=== PATIENT | female | born 1940 | race Caucasian/White ===

== ENCOUNTER 2021-03-30 17:27 | Emergency (ER) | payer MEDICARE, OTHER, SELFPAY ==
[2021-03-30] VITALS (10 sets, daily range): BP systolic 147–182; BP diastolic 65–86; PULSE 63–75; RESP 16–35; TEMP 36.9; O2SAT 96–99; BMI 33.4
--- NOTE | 2021-03-30 18:48 | DI.RAD.S_ITS ---
PROCEDURE: XR CHEST 1V INDICATIONS: chest pain TECHNIQUE: One view of the chest was acquired. COMPARISON: None. FINDINGS: Surgical changes and devices: None. Lungs and pleura: Lungs are clear. No pleural effusions or pneumothorax. Mediastinum: Mediastinal contours appear normal. Heart size is normal. Atherosclerotic vascular calcification noted in the aortic arch. Bones and chest wall: No suspicious bony lesions. Overlying soft tissues appear unremarkable. Generalized decrease in osseous mineralization noted. IMPRESSION: No acute cardiopulmonary findings Approved by: Theodore Cantor M.D. on 03/30/2021 at 18:26
[2021-03-30 19:07] LABS: Add Manual Diff / Slide Review NO; Basophils Absolute Auto 100 /uL (0-100); Basophils Percent Auto 0.9 % (0-2); Eosinophils Absolute Auto 500 /uL (0-450); Eosinophils Percent Auto 6.7 % (2-4); Hematocrit 33.5 % (36-46); Lymphocytes Absolute Auto 2300 /uL (1100-4500); Lymphocytes Percent Auto 30.6 % (25-40); Mean Corpuscular HGB Conc 32.9 % (30-36); Mean Corpuscular Hemoglobin 27.8 PG (26-34); Mean Corpuscular Volume 84.7 fL (80-100); Monocytes Absolute Auto 700 /uL (0-900); Monocytes Percent Auto 9.8 % (3-14); Neutrophils Absolute Auto 3800 /uL (1500-7000); Platelet Count 195 X10^3/uL (150-400); Red Blood Cell Count 3.95 X10^6/uL (4.0-5.2); Red Cell Distribution Width 14.6 % (11.6-14.8); White Blood Cell Count 7.4 X10^3/uL (4.5-11.0)
[2021-03-30 19:14] LABS: COVID19 -Nasal RAPID Negative (Negative)
[2021-03-30 19:18] LABS: Alanine Aminotransferase 32 IU/L (<35); Albumin 3.6 g/dL (3.5-5.0); Albumin Globulin Ratio 1.2 (1.0-2.8); Alkaline Phosphatase 101 U/L (38-126); Aspartate Aminotransferase 37 IU/L (14-36); Bilirubin Total 0.2 mg/dL (0.2-1.3); Blood Urea Nitrogen 18 mg/dL (7-17); Calcium 8.7 mg/dL (8.4-10.2); Carbon Dioxide 30 mmol/L (22-32); Chloride 109 mmol/L (98-107); Creatine Kinase 66 U/L (30-135); Estimated Glomerular Filt Rate > 60.0 mL/min (>60); Globulin 2.9 g/dL (1.7-4.1); Glucose 89 mg/dL (80-110); HEMOLYSIS < 15 (0-50); Lipase 53 U/L (23-300); Potassium 3.6 mmol/L (3.4-5.1); Sodium 144 mmol/L (137-145); Total Protein 6.5 g/dL (6.3-8.2)
[2021-03-30 19:30] LABS: Troponin I < 0.012 ng/mL (0.01-0.034)
--- NOTE | 2021-03-30 20:00 | ED.SOB ---
HPI - SOB/Dyspnea General Chief Complaint: Shortness of Breath/Dyspnea Stated Complaint: Post-covid, SOB, fatigue Time Seen by Provider: 03/30/21 19:33 History of Present Illness HPI Narrative: Patient complains ongoing shortness of breath without any chest pain for the past month. Patient currently living out of her car. Has not seen her primary care physician because office is too far away. Patient at 1 point was living in [place]. Patient states her daughter is living in [place]. Patient denies any previous lung disease. She thinks she had COVID in May 2019 before it was known. Does not smoke. Is not on home oxygen. Vital signs noted. No hypoxia no tachycardia no tachypnea. 97% room air. No recent cough cold congestion. Patient states she had some feet swelling yesterday because she all lot of salt in a pizza. It has improved she. She states she is scheduled April 12 for bladder surgery. Review of Systems Review of Systems Narrative: GENERAL: Denies chills, fatigue, malaise, fever, sweats. HEENT: Denies sinus pain, ear pain, sore throat RESPIRATORY: Complaintdyspnea, denies cough CARDIOVASCULAR: Denies chest pain, palpitations GASTROINTESTINAL: Denies nausea, vomiting, abdominal pain : Denies dysuria, frequency, hematuria MUSCULOSKELETAL: denies muscle or bony pain SKIN: Denies rash, skin lesions NEUROLOGIC: Denies weakness, numbness ROS Unobtainable: All systems reviewed & are unremarkable except as noted in HPI and below Exam Narrative Exam Narrative: GENERAL: in no distress, not toxic not dyspneic HEAD: Normocephalic. EYES: Pupils equal round No scleral icterus. No injection no discharge ENT: Mucous membranes moist. NECK: Trachea midline. CARDIOVASCULAR: Regular rate and rhythm without murmurs RESPIRATORY: Clear to auscultation. Breath sounds equal bilaterally. No wheezes, rales, or rhonchi. Speaks full sentences. Not dyspneic. In no distress. GASTROINTESTINAL: Abdomen soft, non-tender EXTREMITIES: No gross deformities. BACK: No flank tenderness. NEURO: AOx4. SKIN: Warm and dry PSYCH: Not anxious, is cooperative Initial Vital Signs Initial Vital Signs: Vital Signs Temperature 98.5 F 03/30/21 17:37 Pulse Rate 75 03/30/21 17:37 Respiratory Rate 16 03/30/21 17:37 Blood Pressure 153/65 H 03/30/21 17:37 Pulse Oximetry 97 03/30/21 17:37 Course Course Course Narrative: 97% room air walking in hallway in no distress Orders Ordered: ED Orders 03/30/21 18:48 XR chest 1V Stat EKG-12 Lead Stat 03/30/21 18:50 COVID19 -Nasal swab/Pre-Proc Stat 03/30/21 18:55 Complete Blood Count AUTO DIFF Stat Comprehensive Metabolic Panel Stat Lipase Stat NT-proBNP (BNP-Adult 18+) Stat Troponin & CK Cardiac Panel Stat Reevaluation(s) Reevaluation #1: 97% room air walking in hallway no distress not dyspneic. No distress Time: 20:22 Vital Signs Vital signs: Vital Signs - 8 hr 03/30/21 18:41 03/30/21 18:44 03/30/21 19:00 Pulse Rate 70 64 67 Respiratory Rate 19 35 H Blood Pressure 147/69 H Pulse Oximetry 99 97 98 03/30/21 19:30 03/30/21 19:31 03/30/21 20:00 Pulse Rate 64 63 72 Respiratory Rate 25 H 21 32 H Blood Pressure 167/72 H Pulse Oximetry 96 96 98 03/30/21 20:01 03/30/21 20:17 03/30/21 21:19 Pulse Rate 69 73 Respiratory Rate 33 H Blood Pressure 182/79 H 171/86 H Pulse Oximetry 97 97 97 MDM - SOB/Dyspnea Differential Diagnosis Differential diagnosis: Likely acute exacerbation of chronic obstructive airways disease, congestive heart failure, community acquired pneumonia, asthma with exacerbation and other (Dyspnea/upper respiratory infection) Lab Data Result diagrams: 03/30/21 18:55 03/30/21 18:55 Labs: Lab Results 03/30/21 03/30/21 03/30/21 Range/Units 18:50 18:55 18:55 WBC 7.4 (4.5-11.0) X10^3/uL RBC 3.95 L (4.0-5.2) X10^6/uL Hgb 11.0 L (12.0-16.0) g/dL Hct 33.5 L (36-46) % MCV 84.7 (80-100) fL MCH 27.8 (26-34) PG MCHC 32.9 (30-36) % RDW 14.6 (11.6-14.8) % Plt Count 195 (150-400) X10^3/uL Neut % (Auto) 52.0 (50-75) % Lymph % (Auto) 30.6 (25-40) % Piatt % (Auto) 9.8 (3-14) % Eos % (Auto) 6.7 H (2-4) % Baso % (Auto) 0.9 (0-2) % Neut # (Auto) 3800 (1204-5800) /uL Lymph # (Auto) 2300 (3125-3700) /uL Piatt # (Auto) 700 (0-900) /uL Eos # (Auto) 500 H (0-450) /uL Baso # (Auto) 100 (0-100) /uL Sodium 144 (137-145) mmol/L Potassium 3.6 (3.4-5.1) mmol/L Chloride 109 H (98-107) mmol/L Carbon Dioxide 30 (22-32) mmol/L BUN 18 H (7-17) mg/dL Creatinine 0.53 (0.52-1.04) mg/dL Estimated GFR > 60.0 (>60) mL/min BUN/Creatinine Ratio 34.0 H (6-22) Glucose 89 (80-110) mg/dL Calcium 8.7 (8.4-10.2) mg/dL Total Bilirubin 0.2 (0.2-1.3) mg/dL AST 37 H (14-36) IU/L ALT 32 (<35) IU/L Alkaline Phosphatase 101 (38-126) U/L Total Creatine Kinase 66 (30-135) U/L CK-MB (CK-2) TNP CK-MB (CK-2) Rel Index TNP Troponin I < 0.012 (0.01-0.034) ng/mL NT-Pro-B Natriuret Pep (<450) pg/mL Total Protein 6.5 (6.3-8.2) g/dL Albumin 3.6 (3.5-5.0) g/dL Globulin 2.9 (1.7-4.1) g/dL Albumin/Globulin Ratio 1.2 (1.0-2.8) Lipase 53 (23-300) U/L SARS-CoV-2 (PCR) Negative (Negative) 03/30/21 Range/Units 18:55 WBC (4.5-11.0) X10^3/uL RBC (4.0-5.2) X10^6/uL Hgb (12.0-16.0) g/dL Hct (36-46) % MCV (80-100) fL MCH (26-34) PG MCHC (30-36) % RDW (11.6-14.8) % Plt Count (150-400) X10^3/uL Neut % (Auto) (50-75) % Lymph % (Auto) (25-40) % Piatt % (Auto) (3-14) % Eos % (Auto) (2-4) % Baso % (Auto) (0-2) % Neut # (Auto) (4160-0915) /uL Lymph # (Auto) (0822-6587) /uL Piatt # (Auto) (0-900) /uL Eos # (Auto) (0-450) /uL Baso # (Auto) (0-100) /uL Sodium (137-145) mmol/L Potassium (3.4-5.1) mmol/L Chloride (98-107) mmol/L Carbon Dioxide (22-32) mmol/L BUN (7-17) mg/dL Creatinine (0.52-1.04) mg/dL Estimated GFR (>60) mL/min BUN/Creatinine Ratio (6-22) Glucose (80-110) mg/dL Calcium (8.4-10.2) mg/dL Total Bilirubin (0.2-1.3) mg/dL AST (14-36) IU/L ALT (<35) IU/L Alkaline Phosphatase (38-126) U/L Total Creatine Kinase (30-135) U/L CK-MB (CK-2) CK-MB (CK-2) Rel Index Troponin I (0.01-0.034) ng/mL NT-Pro-B Natriuret Pep 276 (<450) pg/mL Total Protein (6.3-8.2) g/dL Albumin (3.5-5.0) g/dL Globulin (1.7-4.1) g/dL Albumin/Globulin Ratio (1.0-2.8) Lipase (23-300) U/L SARS-CoV-2 (PCR) (Negative) Imaging Data Chest x-ray: Radiologist's Impression: [address] [address] XRay Report Signed Patient: Brittany Slade V MR#: [id number] : 1940 Acct:[id number] Age/Sex: 81 / F Date of Service: 03/30/21 Loc: ED Accession Number: [id number] ?? Procedure: XR chest 1V Ordering Provider: Juan Sprague MD PROCEDURE:? XR CHEST 1V ? INDICATIONS:? chest pain ? TECHNIQUE:? One view of the chest was acquired.? ? COMPARISON:? None. ? FINDINGS:? ? Surgical changes and devices:? None.? ? Lungs and pleura:? Lungs are clear.? No pleural effusions or pneumothorax.? ? Mediastinum:? Mediastinal contours appear normal.? Heart size is normal.? Atherosclerotic vascular calcification noted in the aortic arch. ? Bones and chest wall:? No suspicious bony lesions.? Overlying soft tissues appear unremarkable.? Generalized decrease in osseous mineralization noted. ? IMPRESSION:? No acute cardiopulmonary findings ? ? ? Approved by: Theodore Cantor M.D. on 03/30/2021 at 18:26? ECG Data Interpretation: Normal sinus rhythm rate [address] elevation or depression MDM Narrative Medical decision making narrative: Upper for discharge home. Patient no distress. No signs of cardiac stress or pulmonary distress. Normal chest x-ray. 97% room air. Not on beta-marlyn. No tachypnea no tachycardia. No hypoxia. Return precautions reviewed with patient. Given patient referral for new primary care. Not toxic at discharge. Patient desires discharge home. Exam and laboratory studies reassuring. Return precautions reviewed with her. No repeat blood work indicated. Ongoing for 1 month. No chest pain. Patient could be developing allergies as well. She moved here in May 2020. She states she has had a lot of runny nose sinus pressure. She is new to this area. Discharge Plan Departure Patient Disposition: Home Clinical Impression: Shortness of Breath Instructions: DI for Shortness of Breath Activity Restrictions/Additional Instructions: Call provided primary care referral number tomorrow to establish new family doctor. May have your surgery on April 12 as scheduled. Return if worsening questions or concerns. May continue home medications. Call provided [facility] office tomorrow for follow-up regarding your pessary Referrals: [facility] [Outside] Malcom Francisco MD [Physician] -
[2021-03-30 20:21] LABS: NT-proBNP (BNP-Adult 18+) 276 pg/mL (<450)
== END 2021-03-30 21:47 | disposition home or self-care (01) ==
PROVIDERS: Emergency Provider Emergency Medicine
DX: R06.02 Shortness of breath (principal); R07.9 Chest pain, unspecified; Z20.822 Contact with and (suspected) exposure to COVID-19
CPT/HCPCS: 36415; 71045; 80053; 82550; 83690; 83880; 84484; 85025; 87635; 93005; 99284; C9803

== ENCOUNTER 2021-03-31 16:04 | Emergency (ER) | payer MEDICARE, OTHER, SELFPAY ==
[2021-03-31 16:14] VITALS: BP 217/93; PULSE 83; RESP 16; TEMP 36.8; O2SAT 97; BMI 33.4
--- NOTE | 2021-03-31 18:13 | DI.RAD.S_ITS ---
PROCEDURE: XR SHOULDER RT MIN 2V INDICATIONS: pain/injury TECHNIQUE: 3 views of the shoulder were acquired. COMPARISON: None. FINDINGS: Bones: Three views of the right shoulder were performed. There is no fracture or dislocation. Mild degenerative changes are noted. Soft tissues: No suspicious soft tissue calcifications. IMPRESSION: No acute abnormality of the right shoulder. Dictated by: Adriano Syed M.D. on 03/31/2021 at 18:47 Approved by: Adriano Syed M.D. on 03/31/2021 at 18:49
--- NOTE | 2021-03-31 18:15 | ED.UPPEXIN ---
HPI - Extremity Injury (Upper) General Chief Complaint: Extremity Injury, Upper Stated Complaint: Fall, Rt Shoulder Injury Time Seen by Provider: 03/31/21 18:04 Source: patient Mode of arrival: Ambulatory History of Present Illness HPI narrative: Patient was seen by me here last night for unrelated reasons. She is currently living out of her car but last night after discharge she decided stay in the hospital lobby area. She states in the middle night she got up out of the couch and was spitting and lost her balance and hit her right shoulder against the wall. Denies any other injuries. No fall. No head neck trunk chest abdominal back pain. No lower extremity or pelvic or hip pain. Denies any other injuries. Patient is right handed. Has had problems with her shoulder in the past. No surgeries on the shoulder. No numbness or tingling to the face and. Blood pressure noted. She states she no longer takes her blood pressure medications because it makes her too dizzy. Patient was given referral to a family doctor yesterday Related Data Allergies Allergy/AdvReac Type Severity Reaction Status Date / Time codeine AdvReac Vomiting Verified 03/31/21 16:21 Review of Systems Review of Systems Narrative: GENERAL: Denies chills, fatigue, malaise, fever, sweats. HEENT: Denies sinus pain, ear pain, sore throat RESPIRATORY: Denies dyspnea, cough CARDIOVASCULAR: Denies chest pain, palpitations GASTROINTESTINAL: Denies nausea, vomiting, abdominal pain : Denies dysuria, frequency, hematuria MUSCULOSKELETAL: Complainsmuscle or bony pain SKIN: Denies rash, skin lesions NEUROLOGIC: Denies weakness, numbness ROS Unobtainable: All systems reviewed & are unremarkable except as noted in HPI and below Patient History Social History Smoking Status: Never smoker Smoking Status: Never smoker alcohol intake frequency: other Substance Use Type: does not use Exam Narrative Exam Narrative: GENERAL: in no distress, not toxic not dyspneic HEAD: Normocephalic. Nontender face and scalp. EYES: Pupils equal round No scleral icterus. No injection no discharge ENT: Mucous membranes moist. NECK: Trachea midline. No midline tenderness step-off CARDIOVASCULAR: Regular rate and rhythm without murmurs RESPIRATORY: Clear to auscultation. Breath sounds equal bilaterally. No wheezes, rales, or rhonchi. GASTROINTESTINAL: Abdomen soft, non-tender EXTREMITIES: No gross deformities. Examination right upper extremity mild tenderness diffusely of the head right shoulder there is no bruising. Skin is intact. Has limited range of motion due to pain. No gross deformity. Strong cath lab radiology technician in radial pulse with light detected deltoid and finger tips. Nontender elbow and wrist. Remaining limbs nontender left shoulder elbow wrist. Nontender pelvis hips knees and ankles. NEURO: AOx4. SKIN: Warm and dry PSYCH: Not anxious, is cooperative Initial Vital Signs Initial Vital Signs: Vital Signs Temperature 98.2 F 03/31/21 16:14 Pulse Rate 83 03/31/21 16:14 Respiratory Rate 16 03/31/21 16:14 Blood Pressure 217/93 H 03/31/21 16:14 Pulse Oximetry 97 03/31/21 16:14 Course Orders Ordered: Discontinued Medications Acetaminophen (Acetaminophen 325 Mg Tablet) 650 mg PO NOW ONE Stop: 03/31/21 18:15 Last Admin: 03/31/21 18:35 Dose: 650 mg Documented by: FORTINO Reevaluation(s) Reevaluation #1: Blood pressure improved 152/75. Pain controlled. Reviewed results with patient. Agrees with discharge and follow-up. Return precautions reviewed with her Time: 19:12 Vital Signs Vital signs: Vital Signs - 8 hr 03/31/21 16:14 03/31/21 19:11 Temperature 98.2 F Pulse Rate 83 80 Respiratory Rate 16 16 Blood Pressure 217/93 H 152/75 H Pulse Oximetry 97 98 MDM - Extremity Injury (Upper) Differential Diagnosis Differential diagnosis: Likely dislocation of shoulder, fracture of humerus, fracture of clavicle and other (Contusion) Imaging Data Extremity x-ray #1: Radiologist's Impression: [address] [address] XRay Report Signed Patient: Brittany Slade V MR#: [id number] : 1940 Acct:[id number] Age/Sex: 81 / F Date of Service: 03/31/21 Loc: ED Accession Number: [id number] ?? Procedure: XR shoulder RT min 2V Ordering Provider: Juan Sprague MD PROCEDURE:? XR SHOULDER RT MIN 2V ? INDICATIONS:? pain/injury ? TECHNIQUE:? 3 views of the shoulder were acquired.? ? COMPARISON:? None. ? FINDINGS:? ? Bones:? Three views of the right shoulder were performed.? There is no fracture or dislocation.? Mild degenerative changes are noted. ? Soft tissues:? No suspicious soft tissue calcifications.? ? IMPRESSION:? No acute abnormality of the right shoulder. ? ? Dictated by: Adriano Syed M.D. on 03/31/2021 at 18:47 ? ? Approved by: Adriano Syed M.D. on 03/31/2021 at 18:49 ? MDM Narrative Medical decision making narrative: Appropriate for discharge home. Right upper extremity neurovascularly intact. Return precautions reviewed patient. Reviewed with patient blood pressure and needs to take her blood pressure medications at home but she states it makes her too dizzy and does not like to take it. She does understand risks of heart attack stroke kidney failure. Provided orthopedic follow-up for patient. Return precautions reviewed with her Discharge Plan Departure Patient Disposition: Home Clinical Impression: Contusion of right shoulder Qualifiers: Encounter type: initial encounter Qualified Code(s): S40.011A - Contusion of right shoulder, initial encounter Instructions: Essential Hypertension, DI for Contusion Activity Restrictions/Additional Instructions: Return if worse or any questions or concerns. May use Tylenol for shoulder pain. May use cool packs to the shoulder 20 minutes at a time as needed for pain. Call provided orthopedic office tomorrow for office recheck in a week. Referrals: Rashel Levi MD [Primary Care Provider] - Franklin Nichole MD [Physician] -
[2021-03-31] MEDS: ACETAMINOPHEN 325 MG TABLET 650 MG PO (18:35)
[2021-03-31 19:11] VITALS: BP 152/75; PULSE 80; RESP 16; O2SAT 98
== END 2021-03-31 20:01 | disposition home or self-care (01) ==
PROVIDERS: Emergency Provider Emergency Medicine; PCP Internal Medicine
DX: S40.011A Contusion of right shoulder, initial encounter (principal); W22.8XXA Striking against or struck by other objects, initial encounter
CPT/HCPCS: 73030; 99283

== ENCOUNTER 2021-05-30 21:02 | Emergency (ER) | payer MEDICARE, OTHER, SELFPAY ==
[2021-05-30 21:18] VITALS: BP 168/76; PULSE 82; RESP 16; TEMP 36.4; O2SAT 96; BMI 35.6
--- NOTE | 2021-05-30 21:19 | ED.WEAKNESS ---
HPI - Weakness General Chief complaint: Fever Stated complaint: BODY ACHES FEEL SICK Time Seen by Provider: 05/30/21 21:03 History of Present Illness HPI Narrative: 81-year-old female nonsmoker presents with a chief complaint of feeling sick over the course of the day. She states she went to bed in her normal state of health and since about 730 this morning she has felt nauseated and achy. She has had no measured fever. She denies runny nose, sore throat or cough. She has had no chest pain or shortness of breath. She has been nauseated but denies vomiting or abdominal pain. She has had no dysuria, frequency or urgency. She states she feels like she did when she had COVID previously. Denies any new medications or dietary change Related Data Allergies Allergy/AdvReac Type Severity Reaction Status Date / Time codeine AdvReac Vomiting Verified 03/31/21 16:21 Review of Systems Review of Systems Narrative: GENERAL: See HPI HEENT: Denies sinus pain, ear pain, sore throat, difficulty swallowing, dizziness. RESPIRATORY: Denies dyspnea, cough, wheezing, hemoptysis, sputum. CARDIOVASCULAR: Denies chest pain, palpitations, orthopnea, edema, GASTROINTESTINAL: Denies nausea, vomiting, abdominal pain, diarrhea, constipation, melena. : Denies dysuria, frequency, incontinence, hematuria, urinary retention. MUSCULOSKELETAL: denies weakness, joint pain, or bony pain SKIN: Denies rash, skin lesions, or other NEUROLOGIC: Denies weakness, headache, numbness, change in speech, confusion, seizures, incoordination. PSYCHIATRIC: No concerning psychosocial issues. 12 point review of systems is negative except for those stated above Patient History Social History Smoking Status: Never smoker Smoking Status: Never smoker alcohol intake frequency: other Substance Use Type: does not use Exam Narrative Exam Narrative: GENERAL: [] year old patient appears stated age. Well-developed patient, in mild distress. HEAD: Atraumatic. Normocephalic. EYES: Pupils equal round and reactive. Extraocular motions intact. No scleral icterus. No injection or drainage. ENT: Nose without bleeding, purulent drainage. Throat without erythema, tonsillar hypertrophy or exudate. Airway patent. NECK: Trachea midline. Non tender CARDIOVASCULAR: Regular rate and rhythm without murmurs, gallops, or rubs. RESPIRATORY: Clear to auscultation. Breath sounds equal bilaterally. No wheezes, rales, or rhonchi. GASTROINTESTINAL: Abdomen soft, non-tender, nondistended. EXTREMITIES: No edema or joint tenderness. BACK: Nontender without deformity or crepitance. No flank tenderness. NEURO: AOx3. SKIN: No rash or erythema of visible areas Initial Vital Signs Initial Vital Signs: Vital Signs Temperature 97.6 F 05/30/21 21:18 Pulse Rate 82 05/30/21 21:18 Respiratory Rate 16 05/30/21 21:18 Blood Pressure 168/76 H 05/30/21 21:18 Pulse Oximetry 96 05/30/21 21:18 Course Orders Ordered: ED Orders 05/30/21 21:20 COVID19 -Nasal swab/Pre-Proc Stat 05/30/21 21:25 Complete Blood Count AUTO DIFF Stat Comprehensive Metabolic Panel Stat Lipase Stat Magnesium Stat NT-proBNP (BNP-Adult 18+) Stat Troponin & CK Cardiac Panel Stat 05/30/21 21:46 XR chest 2V Stat 05/30/21 22:09 Urine Microscopic Stat Vital Signs Vital signs: Vital Signs - 8 hr 05/30/21 21:18 Temperature 97.6 F Pulse Rate 82 Respiratory Rate 16 Blood Pressure 168/76 H Pulse Oximetry 96 MDM - Weakness Lab Data Result diagrams: 05/30/21 21:25 05/30/21 21:25 Labs: Lab Results 05/30/21 05/30/21 05/30/21 Range/Units 21:20 21:25 21:25 WBC 7.3 (4.5-11.0) X10^3/uL RBC 4.23 (4.0-5.2) X10^6/uL Hgb 11.4 L (12.0-16.0) g/dL Hct 35.3 L (36-46) % MCV 83.4 (80-100) fL MCH 27.0 (26-34) PG MCHC 32.3 (30-36) % RDW 15.0 H (11.6-14.8) % Plt Count 241 (150-400) X10^3/uL Neut % (Auto) 56.1 (50-75) % Lymph % (Auto) 29.8 (25-40) % [place] % (Auto) 9.5 (3-14) % Eos % (Auto) 3.8 (2-4) % Baso % (Auto) 0.8 (0-2) % Neut # (Auto) 4100 (1539-3588) /uL Lymph # (Auto) 2200 (1719-9276) /uL [place] # (Auto) 700 (0-900) /uL Eos # (Auto) 300 (0-450) /uL Baso # (Auto) 100 (0-100) /uL Sodium 144 (137-145) mmol/L Potassium 4.1 (3.4-5.1) mmol/L Chloride 107 (98-107) mmol/L Carbon Dioxide 29 (22-32) mmol/L BUN 18 H (7-17) mg/dL Creatinine 0.62 (0.52-1.04) mg/dL Estimated GFR > 60.0 (>60) mL/min BUN/Creatinine Ratio 29.0 H (6-22) Glucose 106 (80-110) mg/dL Calcium 9.3 (8.4-10.2) mg/dL Magnesium 2.1 (1.6-2.3) mg/dL Total Bilirubin 0.3 (0.2-1.3) mg/dL AST 34 (14-36) IU/L ALT 25 (<35) IU/L Alkaline Phosphatase 104 (38-126) U/L Total Creatine Kinase 74 (30-135) U/L CK-MB (CK-2) TNP CK-MB (CK-2) Rel Index TNP Troponin I < 0.012 (0.01-0.034) ng/mL NT-Pro-B Natriuret Pep 180 (<450) pg/mL Total Protein 7.3 (6.3-8.2) g/dL Albumin 4.1 (3.5-5.0) g/dL Globulin 3.2 (1.7-4.1) g/dL Albumin/Globulin Ratio 1.3 (1.0-2.8) Lipase 49 (23-300) U/L Urine RBC (0-5/HPF) Urine WBC (0-5/HPF) Ur Squamous Epith Cells (0-5/HPF) Calcium Oxalate Crystal Urine Bacteria (None) Urine Mucus (Negative) Ur Culture Indicated? SARS-CoV-2 (PCR) Negative (Negative) 05/30/21 Range/Units 22:09 WBC (4.5-11.0) X10^3/uL RBC (4.0-5.2) X10^6/uL Hgb (12.0-16.0) g/dL Hct (36-46) % MCV (80-100) fL MCH (26-34) PG MCHC (30-36) % RDW (11.6-14.8) % Plt Count (150-400) X10^3/uL Neut % (Auto) (50-75) % Lymph % (Auto) (25-40) % [place] % (Auto) (3-14) % Eos % (Auto) (2-4) % Baso % (Auto) (0-2) % Neut # (Auto) (8832-8550) /uL Lymph # (Auto) (0442-0196) /uL [place] # (Auto) (0-900) /uL Eos # (Auto) (0-450) /uL Baso # (Auto) (0-100) /uL Sodium (137-145) mmol/L Potassium (3.4-5.1) mmol/L Chloride (98-107) mmol/L Carbon Dioxide (22-32) mmol/L BUN (7-17) mg/dL Creatinine (0.52-1.04) mg/dL Estimated GFR (>60) mL/min BUN/Creatinine Ratio (6-22) Glucose (80-110) mg/dL Calcium (8.4-10.2) mg/dL Magnesium (1.6-2.3) mg/dL Total Bilirubin (0.2-1.3) mg/dL AST (14-36) IU/L ALT (<35) IU/L Alkaline Phosphatase (38-126) U/L Total Creatine Kinase (30-135) U/L CK-MB (CK-2) CK-MB (CK-2) Rel Index Troponin I (0.01-0.034) ng/mL NT-Pro-B Natriuret Pep (<450) pg/mL Total Protein (6.3-8.2) g/dL Albumin (3.5-5.0) g/dL Globulin (1.7-4.1) g/dL Albumin/Globulin Ratio (1.0-2.8) Lipase (23-300) U/L Urine RBC 0-1/hpf (0-5/HPF) Urine WBC None seen (0-5/HPF) Ur Squamous Epith Cells >30 /hpf H (0-5/HPF) Calcium Oxalate Crystal Moderate H Urine Bacteria Occasional (0-1) (None) Urine Mucus 2+ H (Negative) Ur Culture Indicated? Cult not indicated SARS-CoV-2 (PCR) (Negative) Urine Dip Bedside Urine Glucose Negative Bedside Urine Bilirubin + 1 Bedside Urine Ketone - Negative Urine Specific [place] 1.030 Bedside Urine Occult Blood +/- Bedside Urine pH 5.5 Bedside Urine Protein + 30 Bedside Urine Urobilinogen +/- 1mg Bedside Urine Nitrite - Negative Bedside Urine Leukocytes - Negative Esterase Imaging Data Chest x-ray: Radiologist Impression: [address] [address] XRay Report Signed Patient: Brittany Slade V MR#: [id number] : 1940 Acct:[id number] Age/Sex: 81 / F Date of Service: 05/30/21 Loc: ED Accession Number: [id number] ?? Procedure: XR chest 2V Ordering Provider: Frank Arambula D.O. PROCEDURE:? XR CHEST 2V ? INDICATIONS:? feels weak ? TECHNIQUE:? 2 views of the chest were acquired.? ? COMPARISON:? [facility], [place], XR CHEST 1V, 03/30/2021, 18:50. ? FINDINGS:? ? Surgical changes and devices:? None.? ? Lungs and pleura:? Mild interstitial prominence.? Suspect nodular infiltrate in the right upper lobe.? No pleural effusions or pneumothorax.? ? Mediastinum:? Mediastinal contours are normal.? Heart size is normal.? ? Bones and chest wall:? No suspicious bony abnormalities.? Soft tissues appear unremarkable.? ? IMPRESSION:? ? 1. Nodular infiltrates in the right upper lobe. 2. There is diffuse interstitial prominence.? Dictated by: Callie Bernal M.D. on 05/30/2021 at 22:00 ? ? Approved by: Callie Bernal M.D. on 05/30/2021 at 22:02 ? MDM Narrative Medical decision making narrative: Patient has a very reassuring physical exam history, labs and imaging. She has stable vitals and shows no signs of sepsis or after distress. She admits that she is most concerned about COVID and also that she is significantly relieved to know that she does not have it. She has been given return precautions and questions have been answered to her apparent satisfaction Discharge Plan Departure Patient Disposition: Home Clinical Impression: Feared complaint without diagnosis Activity Restrictions/Additional Instructions: *You have been diagnosed with [Feared complaint (COVID) without specific diagnosis. Your history, physical exam, labs, and imaging are very reassuring and there is no evidence of COVID, dehydration, pneumonia, UTI or other specific diagnosis. ] *What to do: *Please continue to take your regular medications as directed. [ ] New medication prescriptions sent to your pharmacy: [ ] [ ] New medication written as a paper prescription [x ] No new medications given *Please follow up with your primary care provider in 2-3 days, call for an appointment. Let them know you were seen in the Emergency Department and that we ask that you be seen in follow up. We will electronically transmit a record of today's note if your PCP is in our system *If you do not have a primary care provider please contact the [facility] Resource line at [phone]. They will ask some questions about your medical history and help get you set up with a doctor in the community. *Return to Emergency Department if you should have any new, worsening or concerning symptoms, such as [fever greater than 101 F, shaking chills, worsening pain, persistent vomiting or other bothersome symptoms] Referrals: Rashel Levi MD [Primary Care Provider] -
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
[2021-05-30 21:40] LABS: COVID19 -Nasal RAPID Negative (Negative)
[2021-05-30 21:44] LABS: Add Manual Diff / Slide Review NO; Alanine Aminotransferase 25 IU/L (<35); Albumin 4.1 g/dL (3.5-5.0); Albumin Globulin Ratio 1.3 (1.0-2.8); Alkaline Phosphatase 104 U/L (38-126); Aspartate Aminotransferase 34 IU/L (14-36); Basophils Absolute Auto 100 /uL (0-100); Basophils Percent Auto 0.8 % (0-2); Bilirubin Total 0.3 mg/dL (0.2-1.3); Blood Urea Nitrogen 18 mg/dL (7-17); Calcium 9.3 mg/dL (8.4-10.2); Carbon Dioxide 29 mmol/L (22-32); Chloride 107 mmol/L (98-107); Creatine Kinase 74 U/L (30-135); Eosinophils Absolute Auto 300 /uL (0-450); Eosinophils Percent Auto 3.8 % (2-4); Estimated Glomerular Filt Rate > 60.0 mL/min (>60); Globulin 3.2 g/dL (1.7-4.1); Glucose 106 mg/dL (80-110); HEMOLYSIS < 15 (0-50); Hematocrit 35.3 % (36-46); Hemoglobin 11.4 g/dL (12.0-16.0); Lipase 49 U/L (23-300); Lymphocytes Absolute Auto 2200 /uL (1100-4500); Lymphocytes Percent Auto 29.8 % (25-40); Magnesium 2.1 mg/dL (1.6-2.3); Mean Corpuscular HGB Conc 32.3 % (30-36); Mean Corpuscular Volume 83.4 fL (80-100); Monocytes Absolute Auto 700 /uL (0-900); Monocytes Percent Auto 9.5 % (3-14); Neutrophils Absolute Auto 4100 /uL (1500-7000); Neutrophils Percent Auto 56.1 % (50-75); Platelet Count 241 X10^3/uL (150-400); Potassium 4.1 mmol/L (3.4-5.1); Red Blood Cell Count 4.23 X10^6/uL (4.0-5.2); Sodium 144 mmol/L (137-145); Total Protein 7.3 g/dL (6.3-8.2); White Blood Cell Count 7.3 X10^3/uL (4.5-11.0)
--- NOTE | 2021-05-30 21:46 | DI.RAD.S_ITS ---
PROCEDURE: XR CHEST 2V INDICATIONS: feels weak TECHNIQUE: 2 views of the chest were acquired. COMPARISON: [facility], [place], XR CHEST 1V, 03/30/2021, 18:50. FINDINGS: Surgical changes and devices: None. Lungs and pleura: Mild interstitial prominence. Suspect nodular infiltrate in the right upper lobe. No pleural effusions or pneumothorax. Mediastinum: Mediastinal contours are normal. Heart size is normal. Bones and chest wall: No suspicious bony abnormalities. Soft tissues appear unremarkable. IMPRESSION: 1. Nodular infiltrates in the right upper lobe. 2. There is diffuse interstitial prominence. Dictated by: Callie Bernal M.D. on 05/30/2021 at 22:00 Approved by: Callie Bernal M.D. on 05/30/2021 at 22:02
[2021-05-30 21:55] LABS: NT-proBNP (BNP-Adult 18+) 180 pg/mL (<450); Troponin I < 0.012 ng/mL (0.01-0.034)
[2021-05-30 22:34] LABS: Bacteria Urine Occasional (0-1); Calcium Oxalate Crystals Urine Moderate; Culture Indicated Urine Cult Not Indicated; Mucus Urine 2+ (Negative); RBC Urine 0-1/HPF (0-5/HPF); Squamous Epithelial Cell Urine >30 /HPF (0-5/HPF); WBC Urine None Seen (0-5/HPF)
== END 2021-05-30 22:32 | disposition home or self-care (01) ==
PROVIDERS: Emergency Provider Emergency Medicine; PCP Internal Medicine
DX: R11.0 Nausea (principal); R52 Pain, unspecified; R53.1 Weakness; Z20.822 Contact with and (suspected) exposure to COVID-19
CPT/HCPCS: 36415; 71046; 80053; 81003; 81015; 82550; 83690; 83735; 83880; 84484; 85025; 87635; 99283; 99284; C9803